=== PATIENT | male | born 1985 | race Caucasian/White ===

== ENCOUNTER 2017-12-23 07:45 | Day surgery (SDC) | payer OTHER ==
[2017-12-22 09:45] VITALS: BMI 26.3
[2017-12-23] MEDS ORDERED: Midazolam HCl 2 mg/2 ml Vial ONE (09:04)
[2017-12-23] MEDS ORDERED: Oxymetazoline HCl 0.05% ( 15 ML ) ONE ×2 (09:10→09:45)
[2017-12-23] MEDS ORDERED: Bacitracin Zinc Ointment 30 gm TUBE ONE (09:45)
[2017-12-23] MEDS ORDERED: Lidocaine 1% w/Epinephrine 1:100K 30 ML VIAL ONE (09:45)
[2017-12-23] MEDS ORDERED: Fentanyl 250 MCG/5 ML VIAL ONE (09:52)
[2017-12-23] MEDS ORDERED: Meperidine HCl/PF 25 MG/ML VIAL ONE (11:29)
[2017-12-23] MEDS ORDERED: Fentanyl 100 MCG/2 ML VIAL ONE ×2 (11:46→12:09)
[2017-12-23] MEDS ORDERED: Morphine 4 MG/ML VIAL ONE (12:40)
[2017-12-23] MEDS ORDERED: HYDROcodone/Acetaminophen 5/325 mg Tablet ONE (12:55)
[2017-12-23] MEDS ORDERED: Ondansetron HCl/PF 4 MG/2 ML Vial ONE (14:25)
[2017-12-23] MEDS ORDERED: PROPOFOL 200 MG/20 ML VIAL ONE (14:25)
[2017-12-23] MEDS ORDERED: Succinylcholine Chloride 20 MG/ML 10 ml SYRINGE FS ONE (14:25)
[2017-12-23] MEDS ORDERED: Lidocaine 1% PF 5 ML VIAL ONE (14:25)
--- NOTE | 2017-12-23 19:08 | OP ---
DATE OF PROCEDURE: 12/23/2017 PREOPERATIVE DIAGNOSES: 1. Chronic rhinosinusitis. 2. Nasal septal deviation. 3. Acquired nasal deformity. 4. Bilateral inferior turbinate hypertrophy. 5. Nasal obstruction. 6. Closed nasal fractures. POSTOPERATIVE DIAGNOSES: 1. Chronic rhinosinusitis. 2. Nasal septal deviation. 3. Acquired nasal deformity. 4. Bilateral inferior turbinate hypertrophy. 5. Nasal obstruction. 6. Closed nasal fractures. PROCEDURES: 1. Bilateral endoscopic sinus surgery, total ethmoidectomies. 2. Bilateral endoscopic sinus surgery, maxillary antrostomies. 3. Bilateral endoscopic sinus surgery, frontal sinusotomies. 4. Nasal septoplasty. 5. Bilateral inferior turbinate submucosal resection. 6. Closed reduction nasal fracture. SURGEON: Dr. Jaspreet Taylor. ESTIMATED BLOOD LOSS: 50 mL. COMPLICATIONS: None. ANESTHESIA: GETA. PROCEDURE IN DETAIL: Patient was taken to the operating room and placed supine on the table. General endotracheal anesthesia was obtained by the Anesthesia staff. Tube was secured in the left lower lip. Patient was then placed in the beach chair position, and Afrin pledgets were placed in the nasal cavity. Injections of 1% lidocaine with 1:100,000 epinephrine were made into the nasal septum as well as the inferior turbinates. Patient was then prepped and draped in standard surgical fashion for nasal surgery. Following this, the Afrin pledgets were removed. A [place] incision was made on the left nasal septum. Submucoperichondrial dissection was performed. The deviated portions of the septum included portions of the cartilage and the bony septum. These isolated areas were removed using three cutting rongeurs. There was noted to be a large dorsal and caudal strut, left intact for support of the nose. The mucoperichondrial flaps were then reapproximated using a 4-0 gut stitch. Any straight pieces of cartilage were crushed prior to this and placed between the mucoperichondrial flaps. Following this, the inferior turbinates were then punctured with a submucosal coblation wand, and submucosal coblations were performed of multiple areas of the inferior portion of the anterior inferior turbinate. Please note that the submucosal microdebrider was used to submucosally resect the anterior inferior p ortions of the inferior turbinates bilaterally. Following this, inferior turbinates were laterally f ractured. Following this, the 0 degree scope was advanced into the middle meatus and middle turbinat es were gently medialized using a [place] elevator and a 1% lidocaine with 1:100,000 epinephrine was in jected into the uncinates and middle turbinates. Following this, the uncinate process was anteriorly fractured bilaterally using the ball-ended probe. The microdebrider was used to resect the uncinate process and identify the maxillary sinus ostia bilaterally. Following this, the maxillary sinus ost ia widened using the curved microdebrider and straight [place] forceps. Following this, the ethmoi cami bulla was identified bilaterally and was punctured on its medial and inferior aspect and was jakcson damir. Following this, the grand lamella was then identified and was punctured into the posterior ethm oidal cells working from posterior to anterior. The ethmoidal cells were opened in a mucosal-sparing technique. Following this, the 45 degree endoscope along with 40 degree microdebrider blade was use d to further resect the frontal recess cells bilaterally as well as identified the frontal sinus osti a, which was widened anteriorly and laterally using the curved microdebrider. This was performed sarahi aterally. Following this, medial and then lateral osteotomies were made in the nasal bones and the n tomi bones were fully mobilized. They were then gently expanded to allow for a slightly larger nasal vault. These bones were then relocated into a normal symmetric position and were secured internally using [place] splints and external using [place] splint. The patient tolerated the procedure well.
== END 2017-12-23 13:23 | disposition home or self-care (01) ==
LOC: SDC 07:45
PROVIDERS: ATTEND Otolaryngology Plastic Surgery within the Head & Neck
PROC: 09BM8ZZ Excision of Nasal Septum, Via Natural or Artificial Opening Endoscopic (ICD-10-PCS; principal; 2017-12-23)
PROC: 0NSBXZZ Reposition Nasal Bone, External Approach (ICD-10-PCS; principal; 2017-12-23)
PROC: 09BV8ZZ Excision of Left Ethmoid Sinus, Via Natural or Artificial Opening Endoscopic (ICD-10-PCS; principal; 2017-12-23)
PROC: 09BL8ZZ Excision of Nasal Turbinate, Via Natural or Artificial Opening Endoscopic (ICD-10-PCS; principal; 2017-12-23)
PROC: 09BU8ZZ Excision of Right Ethmoid Sinus, Via Natural or Artificial Opening Endoscopic (ICD-10-PCS; principal; 2017-12-23)
DX: S02.2XXA Fracture of nasal bones, initial encounter for closed fracture (principal); J32.0 Chronic maxillary sinusitis; J32.1 Chronic frontal sinusitis; J32.2 Chronic ethmoidal sinusitis; J32.3 Chronic sphenoidal sinusitis; J34.2 Deviated nasal septum; J34.3 Hypertrophy of nasal turbinates
CPT/HCPCS: 96374; 96375; J2001; J2175; J2250; J2270; J2405; J2704; J3010